=== PATIENT | male | born 1975 | race African-American/Black ===

== ENCOUNTER 2018-06-26 06:39 | Emergency (ER) | payer BC ==
[~2018-06-26] VITALS: Ht 185.4 cm; Wt 93.2 kg
[2018-06-26 07:36] LABS: Basophils # (auto) 0 uL; Basophils % (auto) 0.5 % (0.0-2.0); Eosinophils # (auto) 0.1 uL; Hematocrit 45.8 % (41.0-53.0); Hemoglobin 14.8 g/dL (13.5-17.5); Mean Corpuscular Hgb Conc. 32.3 g/dL (32.0-36.0); Monocytes # (auto) 0.4 uL; Monocytes % (auto) 9.5 % (0.0-12.0); Neutrophils # (auto) 1.6 uL; Nucleated Red Blood Cells % 0.2 %; White Blood Cell 4.3 10^3/uL (4.4-10.8)
[2018-06-26 07:38] LABS: Eosinophils % (auto) 1.4 % (0.0-7.0); Lymphocytes # (auto) 2.1 uL; Lymphocytes % (auto) 50.3 % (10.0-50.0); Mean Corpuscular Hemoglobin 25.5 pg (28.0-32.0); Mean Corpuscular Volume 78.8 fL (80.0-100.0); Neutrophils % (auto) 38.3 % (37.0-80.0); Platelet Count (auto) 211 10^3/uL (140-450); Red Blood Cells 5.81 10^6/uL (4.5-5.90); Red Cell Distribution Width 15.5 % (11.8-14.3)
[2018-06-26 07:49] LABS: Albumin 3.6 g/dL (3.4-5.0); Calcium 8.7 mg/dL (8.5-10.1); Potassium 4.1 mmol/L (3.5-5.1)
[2018-06-26 07:55] LABS: BUN/Creatinine Ratio 10.3; Bilirubin, Total 0.5 mg/dL (0.2-1.0); Total Protein 7.7 g/dL (6.4-8.2)
[2018-06-26 08:13] LABS: Urine Bacteria FEW /hpf (None Seen); Urine Blood Negative /uL (Negative); Urine Mucus FEW (None Seen); Urine Specific Gravity 1.024 (1.001-1.035); Urine WBC 1 /hpf (0 - 3)
[2018-06-26 10:41] VITALS: BP 123/66
== END 2018-06-26 10:43 | disposition home or self-care (01) ==
LOC: ER 06:43
DX: R10.13 Epigastric pain (principal); F17.210 Nicotine dependence, cigarettes, uncomplicated; F12.10 Cannabis abuse, uncomplicated; Z88.1 Allergy status to other antibiotic agents; Z88.2 Allergy status to sulfonamides
CPT/HCPCS: 36415; 74176; 80053; 81001; 82270; 83690; 85025

== ENCOUNTER 2023-11-17 13:21 | Emergency (ER) | payer BC ==
[~2023-11-17] VITALS: Ht 182.9 cm; Wt 78.0 kg
[2023-11-17 14:16] VITALS: BP 114/69; PULSE 95; RESP 18; TEMP 98.2; O2SAT 100
[2023-11-17] MEDS: KETOROLAC TROMETH 60MG/2ML VIAL IM ONE (15:07)
[2023-11-17] MEDS: methylPREDNISolone SOD SUCC 125 MG/2 ML VL IM ONE (15:07)
[2023-11-17] MEDS ORDERED: METH-1182 PO (15:35)
[2023-11-17] MEDS ORDERED: IBUP-1456 PO (15:35)
== END 2023-11-17 15:39 | disposition home or self-care (01) ==
LOC: ER 13:21
DX: G89.29 Other chronic pain (principal); M54.59 Other low back pain; F17.210 Nicotine dependence, cigarettes, uncomplicated; F15.90 Other stimulant use, unspecified, uncomplicated; Z88.8 Allergy status to other drugs, medicaments and biological substances; Z79.899 Other long term (current) drug therapy
CPT/HCPCS: 96372; 99284; J1885; J2930